=== PATIENT | female | born 1940 | race Caucasian/White ===

== ENCOUNTER → 2019-04-26 | Outpatient (CLI) | payer OTHER ==
--- NOTE | 2019-04-26 12:38 | PCVCIMAG ---
APPROVED REPORT Imaging Protocol: Rest Tc-99m/Stress Tc-99m 1 day Study performed: 04/26/2019 09:16:50 Indication: Chest pain, Dyspnea on exertion Patient Location: Out-Patient Stress Nurse: Talia Duong RN [place] Tech:Ginny Johnson [facility] Ht: 5 ft 4 in Wt: 163 lbs BSA: 1.79 m2 HR: 61 bpm BP: 190/80 mmHg BMI: 27.97 Rhythm: Sinus Bradycardia Medical History Medical History: Hyperlipidemia, HTN Medications: Aspirin, Zocor, Benicar-HCT Allergies: Codeine, Morphine Cardiac Risk Factors: Age Pretest Chest Pain Characteristics: No chest pain Exercise History: Physically active Resting Data Rest SPECT myocardial perfusion imaging was performed in supine position 45 minutes following the intravenous injection of 9 mCi of Tc-99m Sestamibi. Time of rest injection: 0850 Date: 04/26/2019 Administration Route: IV Administration Site: Right Wrist Exercise Stress At peak stress, the patient was injected intravenously with 35.5mCi of Tc-99m Sestamibi. Time of stress injection: 1000 Date: 04/26/2019 Administration Route: IV Administration Site: Right Wrist Patient continued to exercise for 1 minute(s). Gated Stress SPECT was performed 30 minutes after stress injection. The images were gated to evaluate regional wall motion and calculate left ventricular ejection fraction. Stress Test Details Stress Test: Exercise stress testing was performed using a Kevin protocol. HRMax Heart Rate (APMHR): 143 bpm Resting HR: 61 bpmTarget HR (85% APMHR): 121 bpm Max HR Achieved: 113 bpm % of APMHR: 79 Recovery HR: 90 bpm BP Resting BP: 190/80 mmHg Max BP: 230/94 mmHg Recovery BP: 188/90 mmHg ECG Resting ECG: Sinus Bradycardia Stress ECG: Sinus Tachycardia with marked ST depression ST Change: Ischemic Maximum ST Deviation: 1.5 mm Recovery ECG: Sinus Rhythm with ST abnormalities Clinical Reason for Termination: Maximal effort, Fatigue, Dyspnea Stress Symptoms: Chest pain, Dyspnea, Leg Fatigue, Dizziness Exercise duration: 6 min 46 sec Exercise capacity: 9.3 METs Symptoms resolved during recovery. Study Quality Study: Good Artifact: Mild Breast artifact Study Data Post stress, the left ventricular ejection was 75%.. SSS: 0 SRS: 9 SDS: 0 TID = 0.75. Perfusion There is a small area of mildly reduced uptake in the apical segment of the anterior wall which is seen on the stress images as well as the resting images. This area thickens and moves normally and is most consistent with attenuation artifact. Wall Motion Normal left ventricular wall motion. Nuclear Conclusion ECG Findings: positive for ischemia Clinical Findings: equivocal Nuclear Findings: negative for ischemia Exercise Capacity: normal Left Ventricular Function: normal This study is of low probability for inducible ischemia or prior infarct. There is a mild fixed defect in the distal anterior segment, consistent with attenuation artifact. Normal global and segmental LV systolic function.
== END | disposition home or self-care (01) ==
LOC: PCVCIMAG 08:23
PROVIDERS: ATTEND Internal Medicine Cardiovascular Disease
DX: R06.09 Other forms of dyspnea (principal); E78.00 Pure hypercholesterolemia, unspecified; I12.9 Hypertensive chronic kidney disease with stage 1 through stage 4 chronic kidney disease, or unspecified chronic kidney disease; N18.9 Chronic kidney disease, unspecified; E03.9 Hypothyroidism, unspecified; E78.2 Mixed hyperlipidemia; M19.90 Unspecified osteoarthritis, unspecified site; M85.80 Other specified disorders of bone density and structure, unspecified site; Z79.82 Long term (current) use of aspirin; Z88.8 Allergy status to other drugs, medicaments and biological substances; Z79.899 Other long term (current) drug therapy
CPT/HCPCS: 78452; 93017; A9500

== ENCOUNTER → 2019-05-24 | Outpatient (CLI) | payer OTHER ==
--- NOTE | 2019-05-24 10:40 | PCVCIMAG ---
APPROVED REPORT Study performed: 05/24/2019 09:36:35 EXAM: Comprehensive 2D, Doppler, and color-flow Echocardiogram Patient Location: Echo lab Room #: 2Status: routine BSA: 1.79 HR: 58 bpmBP: 128/64 mmHg Rhythm: Sinus Bradycardia Other Information Study Quality: Good Risk Factors: Cardiac Risk Factors: HTN, Hyperlipidemia Indications Chest Pain Hypertension/HDD 2D Dimensions IVSd: 6.08 (7-11mm)LVOT Diam: 21.42 (18-24mm) LVDd: 44.27 mm PWd: 8.02 (7-11mm)Ascending Ao: 28.44 (22-36mm) LVDs: 27.44 (25-40mm) Left Atrium: 32.30 (27-40mm) Aortic Root: 25.88 mm LV Single Plane 4CH: 60.09 % LV Single Plane 2CH: 54.90 % Biplane EF: 58.6 % Volumes Left Atrial Volume (Systole) Single Plane 4CH: 41.20 mLSingle Plane 2CH: 58.58 mL Biplane LA Volume: 50.00 mLLA ESV Index: 28.00 mL/m2 Aortic Valve AoV Peak Yordy.: 1.25 m/s AO Peak Gr.: 6.27 mmHgLVOT Max P.78 mmHg LVOT Max V: 0.83 m/s ELLEN Vmax: 2.40 cm2 Mitral Valve E/A Ratio: 1.0 MV Decel. Time: 189.44 ms MV E Max Yordy.: 0.85 m/s MV A Yordy.: 0.87 m/s IVRT: 93.43 ms TDI E/Lateral E': 10.63E/Medial E': 10.63 Medial E' Yordy.: 0.08 m/s Lateral E' Yordy.: 0.08 m/s Pulmonary Valve PV Peak Yordy.: 0.67 m/sPV Peak Gr.: 1.81 mmHg Pulmonary Vein P Vein S: 0.64 m/sP Vein A: 0.33 m/s P Vein D: 0.51 m/sP Vein A Dur.: 96.9 msec P Vein S/D Ratio: 1.25 Tricuspid Valve TR Peak Yordy.: 2.57 m/s TR Peak Gr.: 26.41 mmHg TV Vmax: 0.71 m/sPA Pressure: 33.00 mmHg Left Ventricle The left ventricle is normal size. There is normal LV segmental wall motion. There is normal left ventricular wall thickness. Left ventricular systolic function is normal. The left ventricular ejection fraction is within the normal range. LVEF is 55-60%. Grade II - pseudonormal filling dynamics. Right Ventricle The right ventricle is normal size. The right ventricular systolic function is normal. Atria The left atrium size is normal. The right atrium size is normal. Aortic Valve Aortic valve is trileaflet. The aortic valve is normal in structure and function. No aortic regurgitation is present. There is no aortic valvular stenosis. Mitral Valve The mitral valve is normal in structure. Trace mitral regurgitation. No evidence of mitral valve stenosis. Tricuspid Valve The tricuspid valve is normal in structure. Mild tricuspid regurgitation with a PA pressure of 33 mmHg. Pulmonic Valve The pulmonary valve is normal in structure. There is no pulmonic valvular regurgitation. Great Vessels The aortic root is normal in size. The ascending aorta is normal in size. Aortic arch is normal in caliber. IVC is normal in size and collapses >50% with inspiration. Pericardium There is no pericardial effusion. There is no pleural effusion. <Conclusion> The left ventricle is normal size. There is normal left ventricular wall thickness. Left ventricular systolic function is normal. The right ventricle is normal size. The left atrium size is normal. The aortic valve is normal in structure and function. Trace mitral regurgitation. Mild tricuspid regurgitation with a PA pressure of 33 mmHg.
== END | disposition home or self-care (01) ==
LOC: PCVCIMAG 08:57
PROVIDERS: ATTEND Internal Medicine Cardiovascular Disease
DX: I36.1 Nonrheumatic tricuspid (valve) insufficiency (principal); R07.9 Chest pain, unspecified; I10 Essential (primary) hypertension; I49.1 Atrial premature depolarization; E78.00 Pure hypercholesterolemia, unspecified; R42 Dizziness and giddiness; E78.2 Mixed hyperlipidemia
CPT/HCPCS: 93306